=== PATIENT | female | born 1940 | race Native Hawaiian/Other Pacific Islander ===

== ENCOUNTER 2016-10-15 09:14 | Outpatient (CLI) | payer OTHER | END 2016-10-15 19:11 | disposition home or self-care (01) | LOC: RAD 09:14 | DX: Z01.818 Encounter for other preprocedural examination (principal) ==

== ENCOUNTER 2017-04-18 07:56 | Outpatient (CLI) | payer OTHER ==
[2017-04-18 08:29] LABS: SODIUM 138 mmol/L (136-145)
[2017-04-18 17:18] LABS: PLATELET COUNT 338 K/uL (152-353)
== END 2017-04-18 19:08 | disposition home or self-care (01) ==
LOC: LABW 07:56
PROVIDERS: Internal Medicine
DX: I10 Essential (primary) hypertension (principal); E03.8 Other specified hypothyroidism; E78.00 Pure hypercholesterolemia, unspecified
CPT/HCPCS: 36415; 80053; 80061; 81000; 84439; 84443; 85027

== ENCOUNTER 2017-07-14 07:57 | Outpatient (CLI) | payer OTHER | END 2017-07-14 18:56 | disposition home or self-care (01) | LOC: LABW 07:57 | PROVIDERS: Internal Medicine | DX: E03.8 Other specified hypothyroidism (principal); E78.00 Pure hypercholesterolemia, unspecified | CPT/HCPCS: 36415; 80061; 84439; 84443 ==

== ENCOUNTER 2018-01-09 07:51 | Outpatient (CLI) | payer OTHER ==
[2018-01-09 09:53] LABS: POTASSIUM 3.9 mmol/L (3.6-5.2)
== END 2018-01-09 20:19 | disposition home or self-care (01) ==
LOC: LABW 07:51
PROVIDERS: Internal Medicine
DX: I10 Essential (primary) hypertension (principal); E03.9 Hypothyroidism, unspecified
CPT/HCPCS: 36415; 80053; 80061; 84439; 84443

== ENCOUNTER 2018-05-20 07:25 | Outpatient (CLI) | payer OTHER ==
[2018-05-20 07:52] LABS: PLATELET COUNT 327 K/uL (152-353)
[2018-05-20 08:29] LABS: POTASSIUM 4.2 mmol/L (3.6-5.2)
== END 2018-05-20 23:59 | disposition home or self-care (01) ==
LOC: LABW 07:25
PROVIDERS: Internal Medicine
DX: I10 Essential (primary) hypertension (principal); E03.9 Hypothyroidism, unspecified
CPT/HCPCS: 36415; 80053; 80061; 81000; 84439; 84443; 85027

== ENCOUNTER 2018-10-13 14:48 | Outpatient (CLI) | payer OTHER | END 2018-10-13 23:02 | disposition home or self-care (01) | LOC: RAD 14:48 | DX: M70.71 Other bursitis of hip, right hip (principal) ==

== ENCOUNTER 2019-03-09 08:18 | Outpatient (CLI) | payer OTHER ==
[2019-03-09 08:55] LABS: PLATELET COUNT 312 K/uL (152-353)
[2019-03-09 09:34] LABS: POTASSIUM 4.4 mmol/L (3.6-5.2)
== END 2019-03-09 19:14 | disposition home or self-care (01) ==
LOC: LABW 08:18
PROVIDERS: Internal Medicine
DX: I10 Essential (primary) hypertension (principal); E03.8 Other specified hypothyroidism; E78.00 Pure hypercholesterolemia, unspecified
CPT/HCPCS: 36415; 80053; 80061; 81000; 84439; 84443; 85027

== ENCOUNTER 2019-12-28 08:39 | Outpatient (CLI) | payer OTHER ==
[2019-12-28 08:58] LABS: PLATELET COUNT 296 K/uL (152-353)
[2019-12-28 09:15] LABS: POTASSIUM 3.8 mmol/L (3.6-5.2)
== END 2019-12-28 20:37 | disposition home or self-care (01) ==
LOC: LAB 08:39
PROVIDERS: Internal Medicine
DX: E03.8 Other specified hypothyroidism (principal); I10 Essential (primary) hypertension; E78.00 Pure hypercholesterolemia, unspecified
CPT/HCPCS: 80053; 80061; 81000; 84439; 84443; 85027

== ENCOUNTER 2021-12-18 15:33 | Outpatient (CLI) | payer OTHER ==
[2021-12-18 15:41] LABS: PLATELET COUNT 300 K/uL (152-353)
[2021-12-18 16:06] LABS: POTASSIUM 4.1 mmol/L (3.6-5.2)
== END 2021-12-18 19:06 | disposition home or self-care (01) ==
LOC: LAB 15:33
PROVIDERS: ATTEND Internal Medicine
DX: E03.8 Other specified hypothyroidism (principal); I10 Essential (primary) hypertension; E78.2 Mixed hyperlipidemia; M16.11 Unilateral primary osteoarthritis, right hip; E55.9 Vitamin D deficiency, unspecified
CPT/HCPCS: 80053; 80061; 81000; 82306; 84439; 84443; 85027

== ENCOUNTER 2022-01-21 07:33 | Outpatient (CLI) | payer OTHER | END 2022-01-21 19:07 | disposition home or self-care (01) | LOC: RAD 07:33 | PROVIDERS: ATTEND Internal Medicine | DX: E55.9 Vitamin D deficiency, unspecified (principal); Z13.820 Encounter for screening for osteoporosis; N95.8 Other specified menopausal and perimenopausal disorders ==

== ENCOUNTER 2022-07-15 12:34 | Outpatient (CLI) | payer OTHER ==
[2022-07-15 12:49] LABS: PLATELET COUNT 290 K/uL (152-353)
[2022-07-15 13:03] LABS: POTASSIUM 3.8 mmol/L (3.6-5.2)
== END 2022-07-15 19:05 | disposition home or self-care (01) ==
LOC: LAB 12:34
PROVIDERS: ATTEND Internal Medicine
DX: E03.8 Other specified hypothyroidism (principal); I10 Essential (primary) hypertension; E55.9 Vitamin D deficiency, unspecified
CPT/HCPCS: 80053; 80061; 82306; 84439; 84443; 85027

== ENCOUNTER 2022-12-24 12:32 | Outpatient (CLI) | payer OTHER ==
[2022-12-24 13:08] LABS: PLATELET COUNT 299 K/uL (152-353)
== END 2022-12-24 19:13 | disposition home or self-care (01) ==
LOC: LAB 12:32
PROVIDERS: ATTEND Internal Medicine
DX: E03.8 Other specified hypothyroidism (principal); I10 Essential (primary) hypertension; E55.9 Vitamin D deficiency, unspecified
CPT/HCPCS: 80053; 80061; 81002; 82306; 84439; 84443; 85027

== ENCOUNTER 2023-05-26 12:44 | Outpatient (CLI) | payer OTHER ==
[2023-05-26 13:27] LABS: PLATELET COUNT 283 K/uL (152-353)
[2023-05-26 13:57] LABS: POTASSIUM 4.4 mmol/L (3.6-5.2)
== END 2023-05-26 20:26 | disposition home or self-care (01) ==
LOC: LAB 12:44
PROVIDERS: ATTEND Internal Medicine
DX: E03.8 Other specified hypothyroidism (principal); I10 Essential (primary) hypertension
CPT/HCPCS: 80053; 80061; 81002; 84439; 84443; 85027